=== PATIENT | male | born 1965 | race Caucasian/White ===

== ENCOUNTER 2018-06-30 15:09 | Observation (INO) ==
[2018-06-30] MEDS ORDERED: HYDROmorphone PF Inj 2 MG/ML Vial IV.PUSH ONE (16:01)
--- NOTE | 2018-06-30 16:16 | ED ---
HPI General Chief Complaint: Abdominal Pain Stated Complaint: abd pain Time Seen by Provider: 06/30/18 15:55 History of Present Illness HPI narrative: Patient presents to the emergency department complaining of abdominal pain that started this morning and has increased in severity of the last 3 hours. Pain is described as being epigastric and left upper quadrant, radiates to his back, 10 out of 10, intermittent, no alleviating or aggravating factors. Similar pain approximately 4 years ago and told that it was secondary to stomach ulcers. Reports subjective fever and chills, but denies chest pain or shortness of breath or dysuria or hematuria or diarrhea. He has no known medical problems and states that he took Nexium 1 hour ago. He denies tobacco use but reports alcohol use and he drank beer on Friday. Related Data Home Medications Medication Instructions Recorded Confirmed No Known Home Medications 06/30/18 06/30/18 Allergies Allergy/AdvReac Type Severity Reaction Status Date / Time No Known Allergies Allergy Verified 06/30/18 15:20 Review of Systems ROS: all other systems reviewed are negative [facility] [place] Medical History Medical History Patient denies medical problems (Acute) Stomach ulcer (Acute) Surgical History Surgical History H/O knee surgery (Acute) Social History Social History Substance History: No History of Abuse Second Hand Smoke Exposure: No Smoking Status: Never smoker How Often Do You Have a Drink Containing Alcohol: Never Recent Travel in [facility] within the Last 8 Weeks: No Recent Out of Country Travel within the Last 8 Weeks: No Immunization History Tetanus Immunization: <5 Years Exam Narrative Exam Narrative: GENERAL: Positive discomfort secondary to pain SKIN: Focused skin assessment warm/dry. HEAD: Atraumatic. Normocephalic. EYES: Pupils equal and round. No scleral icterus. No injection or drainage. ENT: No nasal bleeding or discharge. Mucous membranes pink and moist. NECK: Trachea midline. No JVD. CARDIOVASCULAR: Regular rate and rhythm. No murmur appreciated. RESPIRATORY: No accessory muscle use. Clear to auscultation. Breath sounds equal bilaterally. GASTROINTESTINAL: Abdomen soft, epigastric and left upper quadrant tender to palpation, nondistended. Hepatic and splenic margins not palpable. MUSCULOSKELETAL: No obvious deformities. No clubbing. No cyanosis. No edema. NEUROLOGICAL: Awake and alert. No obvious cranial nerve deficits. Motor grossly within normal limits. Normal speech. PSYCHIATRIC: Appropriate mood and affect; insight and judgment normal. Course Initial Documented Vital Signs Temperature 98.2 F 06/30/18 15:15 Pulse Rate 60 06/30/18 15:15 Respiratory Rate 24 06/30/18 15:15 Blood Pressure 221/105 H 06/30/18 15:15 Pulse Oximetry 98 06/30/18 15:15 Last Documented Vital Signs Temperature 98.2 F 06/30/18 15:15 Pulse Rate 63 06/30/18 18:17 Respiratory Rate 18 06/30/18 18:17 Blood Pressure 193/92 H 06/30/18 18:17 Pulse Oximetry 98 06/30/18 18:17 Medical Decision Making MDM Narrative Medical decision making narrative: Presents to the emergency department complaining of abdominal pain. 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 ECG, labs, CT abdomen and pelvis, and 1 mg IV Dilaudid ordered. 1656: Patient states pain is returning, order 2 mg IV morphine. 1819: CT + diverticulitis. Patient still c/o pain despite IV dilaudid and IV morphine. 500mg IV flagyl and 400mg IV cipro and another 2mg IV morphine ordered. Medical Screen Exam Complete: Yes Emergency Medical Condition: Yes Lab Data Result diagrams: 06/30/18 16:10 06/30/18 16:10 Lab Results 06/30/18 06/30/18 06/30/18 Range/Units 16:10 16:10 16:10 WBC 9.5 (4.0-11.0) th/mm3 RBC 5.28 (4.50-5.90) mil/mm3 Hgb 16.7 (13.0-17.0) gm/dL Hct 46.9 (39.0-51.0) % MCV 88.8 (80.0-100.0) fL MCH 31.7 (27.0-34.0) pg MCHC 35.7 (32.0-36.0) % RDW 13.4 (11.6-17.2) % Plt Count 209 (150-450) th/mm3 MPV 8.4 (7.0-11.0) fL Prelim Diff (Auto) Slide review pending Neut % (Auto) 84.8 H (16.0-70.0) % Lymph % (Auto) 10.4 (9.0-44.0) % Swisher % (Auto) 4.5 (0.0-8.0) % Eos % (Auto) 0.1 (0.0-4.0) % Baso % (Auto) 0.2 (0.0-2.0) % Neut # (Auto) 8.0 H (1.8-7.7) th/mm3 Lymph # (Auto) 1.0 (1.0-4.8) th/mm3 Swisher # (Auto) 0.4 (0.0-0.9) th/mm3 Eos # (Auto) 0.0 (0.0-0.4) th/mm3 Baso # (Auto) 0.0 (0.0-0.2) th/mm3 WBC Differential . Diff Scan Auto diff confirmed Differential Comment . Platelet Estimate Normal (Normal) Platelet Morphology Normal (Normal) RBC Morphology Normal (Normal) Sodium 137 (136-145) meq/L Potassium 4.1 (3.5-5.1) meq/L Chloride 100 (98-107) meq/L Carbon Dioxide 28.6 (21.0-32.0) meq/L Anion Gap 8 (5-15) meq/L BUN 17 (7-18) mg/dL Creatinine 0.86 (0.60-1.30) mg/dL Estimated GFR Greater than 89 (>89) mL/min Random Glucose 109 H (74-106) mg/dL Calcium 9.1 (8.5-10.1) mg/dL Magnesium 1.9 (1.5-2.5) mg/dL Total Bilirubin 0.6 (0.2-1.0) mg/dL AST 23 (15-37) U/L ALT 30 (12-78) U/L Alkaline Phosphatase 92 (45-117) U/L Troponin I Less than 0.02 L (0.02-0.05) ng/mL Total Protein 8.1 (6.4-8.2) g/dL Albumin 3.8 (3.4-5.0) g/dL Lipase 73 (73-393) U/L Urine Color Yellow (Yellw/Straw) Urine Clarity Hazy H (Clear) Urine pH 5.0 (5.0-8.5) Ur Specific [place] 1.029 (1.002-1.035) Urine Protein 30 H (Neg-Trace) mg/dL Urine Glucose (UA) Negative (Negative) mg/dL Urine Ketones Trace H (Negative) mg/dL Urine Occult Blood Negative (Negative) Urine Nitrate Negative (Negative) Urine Bilirubin Negative (Negative) Urine Urobilinogen Less than 2 (Less than 2) mg/dL Ur Leukocyte Esterase Negative (Negative) Urine RBC 1 (0-3) /hpf Urine WBC Less than 1 (0-5) /hpf Urine Mucus Few H (Occasional) /lpf Micro UA Comment Culture not ind Ur Microscopic Review Not Reportable Urine Culture Comments Culture not ind Imaging Data Radiologist's impression: Abdomen/Pelvis CT 06/30/18 16:01 CONCLUSION: 1. Diverticulitis in the sigmoid colon (image 70-75) without abscess or free air. ECG Data Attestation: I personally reviewed and interpreted this ECG as follows: (Sinus bradycardia, rate 52, normal axis, T wave inversion in leads III and V1, LVH, normal intervals, QTC 423) Discharge Plan Discharge Disposition Patient Disposition: 30 Still Patient Discharge Condition Condition: Stable Discharge Details Diagnosis: Diverticulitis Physicians Team ED Provider: Xenia Jade Primary Care Provider: Primary Care Tawanna Kat Rxs /Orders / Referrals /Forms Prescriptions: No Action No Known Home Medications RF: 0 Discharge Interventions Interventions: Vital Signs Last Done: 06/30/18 18:17 Status ED Status: With Doctor
[2018-06-30 16:33] LABS: Baso % (Auto) 0.2 % (0.0-2.0); Eos % (Auto) 0.1 % (0.0-4.0); Hematocrit 46.9 % (39.0-51.0); Hemoglobin 16.7 gm/dL (13.0-17.0); Lymph % (Auto) 10.4 % (9.0-44.0); Mean Corpuscular HGB Conc 35.7 % (32.0-36.0); Mean Corpuscular Hemoglobin 31.7 pg (27.0-34.0); Mean Corpuscular Volume 88.8 fL (80.0-100.0); Mean Platelet Volume 8.4 fL (7.0-11.0); Mono # (Auto) 0.4 th/mm3 (0.0-0.9); Mono % (Auto) 4.5 % (0.0-8.0); Neut % (Auto) 84.8 % (16.0-70.0); Platelet Count 209 th/mm3 (150-450); Red Blood Count 5.28 mil/mm3 (4.50-5.90); Red Cell Distribution Width 13.4 % (11.6-17.2); White Blood Count 9.5 th/mm3 (4.0-11.0)
[2018-06-30 16:40] LABS: Bilirubin,Urine Negative (Negative); Clarity,Urine Hazy (Clear); Color,Urine Yellow (Yellw/Straw); Glucose,Urine (UA) Negative (Negative); Leukocyte Esterase,Urine Negative (Negative); Mucus,Urine Few /lpf (Occasional); Nitrite,Urine Negative (Negative); Specific Gravity,Urine 1.029 (1.002-1.035)
[2018-06-30 16:49] LABS: Albumin 3.8 g/dL (3.4-5.0); Anion Gap 8 meq/L (5-15); Aspartate Aminotransferase 23 U/L (15-37); Blood Urea Nitrogen 17 mg/dL (7-18); Calcium 9.1 mg/dL (8.5-10.1); Carbon Dioxide 28.6 meq/L (21.0-32.0); Chloride 100 meq/L (98-107); Glomerular Filtration Rate Greater Than 89 mL/min (>89); Glucose,Random 109 mg/dL (74-106); Lipase 73 U/L (73-393); Magnesium 1.9 mg/dL (1.5-2.5); Potassium 4.1 meq/L (3.5-5.1); Sodium 137 meq/L (136-145)
[2018-06-30 16:50] LABS: Alanine Aminotransferase 30 U/L (12-78)
[2018-06-30 16:54] LABS: Alkaline Phosphatase 92 U/L (45-117); Total Protein 8.1 g/dL (6.4-8.2)
[2018-06-30] MEDS ORDERED: Morphine Sulfate Inj 2 MG/ML Vial IV.PUSH ONE ×2 (16:57→18:19)
[2018-06-30 17:23] LABS: Platelet Estimate Normal (Normal); Platelet Morphology Normal (Normal); RBC Morphology Normal (Normal)
--- NOTE | 2018-06-30 17:53 | CT ---
EXAM DATE: 06/30/2018 5:49 PM EDT AGE/SEX: 52 years / Male INDICATIONS: Abdominal pain and vomiting. CLINICAL DATA: This is the patient's initial encounter. Patient reports that signs and symptoms have been present for 1 day and indicates a pain score of 9/10. MEDICAL/SURGICAL HISTORY: . Stomach ulcer. None. ORAL CONTRAST: No oral contrast ingested. RADIATION DOSE: 21.30 CTDI (mGy) COMPARISON: No prior exams available for comparison. TECHNIQUE: Multiple contiguous axial images were obtained through the abdomen and pelvis following b olus infusion of 96 ml Omnipaque 350 (iohexol) nonionic water-soluble contrast as a single exam dos e. No oral contrast ingested. Using automated exposure control and adjustment of the mA and/or kV ac cording to patient size, radiation dose was kept as low as reasonably achievable to obtain optimal di agnostic quality images. DICOM format image data is available electronically for review and comparis on. FINDINGS: Lower Lungs: The visualized lower lungs are clear. Liver: The liver has a homogeneous density without space-occupying lesion. There is no dilation of th e biliary tree. Spleen: Homogeneous density without enlargement. Pancreas: Unremarkable without mass or calcification. Kidneys: Normal in size and shape. No evidence of mass or hydronephrosis. Adrenal Glands: Unremarkable. Aorta: The aorta and proximal iliac vessels are grossly unremarkable without aneurysmal dilation. Bowel/Mesentery: There is some low-grade inflammation around the sigmoid colon in the central glenoi d small diverticula consistent with diverticulitis. No free air or free fluid or drainable abscess is identified Abdominal Wall: Intact. Retroperitoneum: No evidence of adenopathy in the retrocrural, para-aortic, or deep pelvic regions. Bladder: Contours are smooth. Reproductive Organs: No abnormal masses or calcifications seen. Inguinal: The inguinal region is unremarkable without evidence of adenopathy. Bony Structures: Unremarkable. CONCLUSION: 1. Diverticulitis in the sigmoid colon (image 70-75) without abscess or free air. Electronically signed by: Mulugeta Grider MD 06/30/2018 5:52 PM EDT
[2018-06-30] MEDS ORDERED: Ciprofloxacin 400 MG/200 ML 400 MG/200 ML PIGGYBACK IV.SIG ONE (18:19)
[2018-06-30] MEDS ORDERED: Morphine Sulfate Inj 2 MG/ML Vial IV.PUSH PRN (18:55)
--- NOTE | 2018-06-30 19:05 | P.HPIM ---
History of Present Illness Primary Care Physician: No Primary Care Physician History of Present Illness: This patient is a 52-year-old male with no known past medical history. The patient presents to our emergency department with complaints of abdominal pain that started this past . As per the patient and his he has a significant history of eating red meat. He had some abdominal pain this past Friday which was relieved after a bowel movement. He said on Friday he again started to have diffuse abdominal pain that was worse in the left upper and left lower quadrant. He denies any bloody bowel movements. He also has been having subjective fevers and chills. His symptoms progressively got worse and today came into the emergency department for evaluation. The patient denies any chest pain, no diarrhea breath, no constipation. Past medical history patient has no known medical history Surgical history patient had a left ACL repair approximately 20 years ago. Family history noncontributory Social history the patient drinks alcohol socially, no history of tobacco use or drug use. Review of Systems All other systems reviewed negative except as stated in HPI [facility] - History History Provided By: Patient - Medical History Medical History: Medical History (Last Updated 06/30/18 @ 15:42 by Cassia Bailey) Patient denies medical problems Stomach ulcer - Surgical History Surgical History: Surgical History (Last Updated 06/30/18 @ 15:20 by Ramona Arriola) H/O knee surgery - Tobacco History Second Hand Smoke Exposure: No Smoking Status: Never smoker - Alcohol History How Often Do You Have a Drink Containing Alcohol: Never - Substance Use History Substance History: No History of Abuse - Travel History Recent Travel in the [place] Within the Last 8 Weeks: No Recent Travel Out of the Country Within the Last 8 Weeks: No - Immunization History Tetanus Immunization: <5 Years Medications and Allergies Active Medications: Active Medications Hydrocodone Bitart/Acetaminophen ([place] 5/325) 1 tab PO Q4H PRN PRN Reason: ABDOMINAL PAIN Amlodipine Besylate (Norvasc) 10 mg PO DAILY [facility] Ciprofloxacin/Dextrose (Cipro 400 Mg/200 Ml Inj) 400 mg in 200 mls @ 200 mls/ hr IV.SIG ONCE ONE Stop: 06/30/18 19:18 Last Admin: 06/30/18 18:56 Dose: 200 mls/hr Metronidazole/Sodium Chloride (Flagyl 500 Mg Inj) 100 mls @ 100 mls/hr IV.SIG Q8HR ONE Stop: 07/01/18 06:59 Ciprofloxacin/Dextrose (Cipro 400 Mg/200 Ml Inj) 400 mg in 200 mls @ 200 mls/ hr IV.SIG Q12H [facility] Sodium Chloride (Ns Inj) 1,000 mls @ 100 mls/hr IV.CONT .Q10H [facility] Morphine Sulfate (Morphine Inj) 2 mg IV.PUSH Q3H PRN PRN Reason: ABDOMINAL PAIN Ondansetron HCl (Zofran Inj) 4 mg IV.PUSH Q6H PRN PRN Reason: NAUSEA OR VOMITING Allergies Allergy/AdvReac Type Severity Reaction Status Date / Time No Known Allergies Allergy Verified 06/30/18 15:20 Home Medications Medication Instructions Recorded Confirmed Type No Known Home Medications 06/30/18 06/30/18 History Exam Vital signs: Vital Signs 06/30/18 15:15 06/30/18 18:17 Temperature 98.2 F Pulse Rate 60 63 Respiratory Rate 24 18 Blood Pressure 221/105 H 193/92 H Pulse Oximetry 98 98 Intake & Output 06/29/18 06/30/18 06/30/18 18:59 06:59 18:59 Weight 116.12 kg Narrative: General patient complains of abdominal pain HEENT extraocular movements are intact, clear oropharyngeal mucosa, no JVD Cardiovascular S1-S2 audible, RRR, no murmurs rubs or gallops Respiratory clear to auscultation bilaterally Abdomen soft, epigastric pain. No significant pain on palpation. Normal bowel sounds. Extremities no edema 2+ distal pulses in bilateral upper and lower extremities Neuro cranial nerves II through XII intact Results - Labs CBC & Chem 7: 06/30/18 16:10 06/30/18 16:10 Labs: Short CBC 06/30/18 Range/Units 16:10 WBC 9.5 (4.0-11.0) th/mm3 Hgb 16.7 (13.0-17.0) gm/dL Hct 46.9 (39.0-51.0) % Plt Count 209 (150-450) th/mm3 BMP 06/30/18 16:10 Sodium 137 Potassium 4.1 Chloride 100 Carbon Dioxide 28.6 BUN 17 Creatinine 0.86 Calcium 9.1 Cardiac Enzymes 06/30/18 Range/Units 16:10 Troponin I Less than 0.02 L (0.02-0.05) ng/mL Liver Function 06/30/18 Range/Units 16:10 Total Bilirubin 0.6 (0.2-1.0) mg/dL AST 23 (15-37) U/L ALT 30 (12-78) U/L Alkaline Phosphatase 92 (45-117) U/L Albumin 3.8 (3.4-5.0) g/dL Urine 06/30/18 Range/Units 16:10 Urine Color Yellow (Yellw/Straw) Urine Clarity Hazy H (Clear) Urine pH 5.0 (5.0-8.5) Ur Specific [place] 1.029 (1.002-1.035) Urine Protein 30 H (Neg-Trace) mg/dL Urine Glucose (UA) Negative (Negative) mg/dL - Imaging Impressions Abdomen/Pelvis CT 06/30/18 16:01 CONCLUSION: 1. Diverticulitis in the sigmoid colon (image 70-75) without abscess or free air. Caprini VTE Risk Assessment Caprini VTE Risk Assessment: No/Low Risk (score <= 1) Caprini Risk Assessment Model: Point Value = 1 Point Value = 2 Point Value = 3 Point Value = 5 Age 41-60 Minor surgery BMI > 25 kg/m2 Swollen legs Varicose veins or History of unexplained or recurrent spontaneous Oral contraceptives or hormone replacement Sepsis (< 1 month) Serious lung disease, including pneumonia (< 1 month) Abnormal pulmonary function Acute myocardial infarction Congestive heart failure (< 1 month) History of inflammatory bowel disease Medical patient at bed rest Age 61-74 Arthroscopic surgery Major open surgery (> 45 min) Laparoscopic surgery (> 45 min) Malignancy Confined to bed (> 72 hours) Immobilizing plaster cast Central venous access Age >= 75 History of VTE Family history of VTE Factor V Leiden Prothrombin [id number] Lupus anticoagulant Anticardiolipin antibodies Elevated serum homocysteine Heparin-induced thrombocytopenia Other congenital or acquired thrombophilia Stroke (< 1 month) Elective arthroplasty Hip, pelvis, or leg fracture Acute spinal cord injury (< 1 month) Prophylaxis Regimen: Total Risk Factor Score Risk Level Prophylaxis Regimen 0-1 Low Early ambulation 2 Moderate Order ONE of the following: *Sequential Compression Device (SCD) *Heparin 5000 units SQ BID 3-4 Higher Order ONE of the following medications: *Heparin 5000 units SQ TID *Enoxaparin/Lovenox 40 mg SQ daily (WT < 150 kg, CrCl > 30 mL/min) *Enoxaparin/Lovenox 30 mg SQ daily (WT < 150 kg, CrCl > 10-29 mL/min) *Enoxaparin/Lovenox 30 mg SQ BID (WT < 150 kg, CrCl > 30 mL/min) AND/OR *Sequential Compression Device (SCD) 5 or more Highest Order ONE of the following medications: *Heparin 5000 units SQ TID (Preferred with Epidurals) *Enoxaparin/Lovenox 40 mg SQ daily (WT < 150 kg, CrCl > 30 mL/min) *Enoxaparin/Lovenox 30 mg SQ daily (WT < 150 kg, CrCl > 10-29 mL/min) *Enoxaparin/Lovenox 30 mg SQ BID (WT < 150 kg, CrCl > 30 mL/min) AND *Sequential Compression Device (SCD) Assessment and Plan - Plan This patient is a 52-year-old male with no known past medical history. The patient presents to our emergency department with complaints of abdominal pain that started this past . As per the patient and his he has a significant history of eating red meat. He had some abdominal pain this past Friday which was relieved after a bowel movement. He said on Friday he again started to have diffuse abdominal pain that was worse in the left upper and left lower quadrant. He denies any bloody bowel movements. He also has been having subjective fevers and chills. His symptoms progressively got worse and today came into the emergency department for evaluation. 1. Acute diverticulitis The patient presented with the symptoms mentioned above. He was started on IV pain medication given significant amount of abdominal pain. CT scan of the abdomen pelvis shows diverticulitis. He has been started on IV Flagyl and Cipro. He will be given Zofran as needed for nausea. I will keep the patient n.p.o. for tonight, continue IV fluids. We will reassess the patient tomorrow a.m. diet will likely be restarted tomorrow. Once patient symptoms improved he can be transitioned to p.o. antibiotics will likely be discharged tomorrow. Continue p.o. and IV pain medication as needed. 2. Hypertension The patient has no known diagnosis of hypertension. On my evaluation the patient systolic blood pressure was around 180. He will be started on Norvasc today. Pain is also likely contributing to his elevation in blood pressure. We will continue to monitor the patient blood pressure and adjust his medication if needed. Patient is ambulatory, no pharmacotherapy for DVT prophylaxis.
[2018-06-30] MEDS: amLODIPine 10 MG Tablet PO SCH (20:07)
[2018-06-30] MEDS: Sod Chloride 0.9% Inj 1,000 ML IV.CONT SCH (20:08)
[2018-06-30] MEDS: HYDROmorphone PF Inj 2 MG/ML Vial IV.PUSH PRN (23:03)
[2018-07-01] MEDS: HYDROmorphone PF Inj 2 MG/ML Vial IV.PUSH PRN (05:00)
[2018-07-01] MEDS: Sod Chloride 0.9% Inj 1,000 ML IV.CONT SCH ×3 (05:01→19:21)
[2018-07-01] MEDS: Ciprofloxacin 400 MG/200 ML 400 MG/200 ML PIGGYBACK IV.SIG SCH ×2 (06:26→19:22)
--- NOTE | 2018-07-01 08:46 | P.PN ---
Subjective Interval history: Patient reports abdominal pain diffuse however he also complains of more epigastric pain since he is taking pantoprazole at home for GERD. Restart pantoprazole give one-time IV pantoprazole. Says he was nauseated last night however feels comfortable to try food and no nausea in the morning. Will advance diet. Did not have any bowel movement since yesterday when was bloody. No fever or chills overnight. Feels tired. Will advance diet today and continue IV antibiotics for 24-48 hours we will switch probably to by mouth antibiotics tomorrow can be discharge if able to tolerate food and p.o. antibiotics. Give total of 10 days of antibiotics Physical Exam Vital signs: Vital Signs 06/30/18 15:15 06/30/18 18:17 06/30/18 19:41 Temperature 98.2 F Pulse Rate 60 63 62 Respiratory Rate 24 18 13 Blood Pressure 221/105 H 193/92 H 179/91 H Pulse Oximetry 98 98 96 06/30/18 23:45 07/01/18 00:00 07/01/18 04:59 Temperature 98.3 F Pulse Rate 70 70 Respiratory Rate 20 16 18 Blood Pressure 168/87 H 196/95 H Pulse Oximetry 93 L 98 07/01/18 06:27 07/01/18 07:54 Temperature 98.1 F 98.2 F Pulse Rate 83 72 Respiratory Rate 18 12 Blood Pressure 147/76 H 170/92 H Pulse Oximetry 99 93 L Intake & Output 06/30/18 07/01/18 07/01/18 18:59 06:59 18:59 Intake Total 1300 / 1300 200 / 200 Balance 1300 / 1300 200 / 200 Weight 116.12 kg Intake: IV 1300 / 1300 200 / 200 NS Inj 1,000 ML @ 100 mls/hr IV 900 / 900 .CONT .Q10H [facility] Rx#:[id number] Cipro 400 MG/200 ML Inj 400 mg 200 / 200 200 / 200 In 200 ml @ 200 mls/hr IV.SIG Q12H [facility] Rx#:[id number] Flagyl 500 MG Inj 100 ML @ 100 200 / 200 mls/hr IV.SIG Q8HR [facility] Rx#: [id number] Other: # Voids 1 Narrative: General patient is a very pleasant 52-year-old male, appears in some distress due to abdominal pain, he is well-nourished well-developed. Cardiovascular S1-S2 audible, RRR, no murmurs rubs or gallops Respiratory clear to auscultation bilaterally. No wheezing. Abdomen soft, epigastric pain. No significant pain on palpation. Normal bowel sounds. Extremities no edema 2+ distal pulses in bilateral upper and lower extremities Neuro cranial nerves II through XII grossly normal. Strength grossly normal. Results - Labs CBC & Chem 7: 06/30/18 16:10 06/30/18 16:10 Laboratory Results - last 24 hr 06/30/18 06/30/18 06/30/18 16:10 16:10 16:10 WBC 9.5 RBC 5.28 Hgb 16.7 Hct 46.9 MCV 88.8 MCH 31.7 MCHC 35.7 RDW 13.4 Plt Count 209 MPV 8.4 Prelim Diff (Auto) Slide review pending Neut % (Auto) 84.8 H Lymph % (Auto) 10.4 Desha % (Auto) 4.5 Eos % (Auto) 0.1 Baso % (Auto) 0.2 Neut # (Auto) 8.0 H Lymph # (Auto) 1.0 Desha # (Auto) 0.4 Eos # (Auto) 0.0 Baso # (Auto) 0.0 WBC Differential . Diff Scan Auto diff confirmed Differential Comment . Platelet Estimate Normal Platelet Morphology Normal RBC Morphology Normal Sodium 137 Potassium 4.1 Chloride 100 Carbon Dioxide 28.6 Anion Gap 8 BUN 17 Creatinine 0.86 Estimated GFR Greater than 89 Random Glucose 109 H Calcium 9.1 Magnesium 1.9 Total Bilirubin 0.6 AST 23 ALT 30 Alkaline Phosphatase 92 Troponin I Less than 0.02 L Total Protein 8.1 Albumin 3.8 Lipase 73 Urine Color Yellow Urine Clarity Hazy H Urine pH 5.0 Ur Specific [place] 1.029 Urine Protein 30 H Urine Glucose (UA) Negative Urine Ketones Trace H Urine Occult Blood Negative Urine Nitrate Negative Urine Bilirubin Negative Urine Urobilinogen Less than 2 Ur Leukocyte Esterase Negative Urine RBC 1 Urine WBC Less than 1 Urine Mucus Few H Micro UA Comment Culture not ind Ur Microscopic Review Not Reportable Urine Culture Comments Culture not ind - Imaging Impressions Abdomen/Pelvis CT 06/30/18 16:01 CONCLUSION: 1. Diverticulitis in the sigmoid colon (image 70-75) without abscess or free air. Assessment and Plan - Plan This patient is a 52-year-old male with no known past medical history. The patient presents to our emergency department with complaints of abdominal pain that started this past . As per the patient and his he has a significant history of eating red meat. He had some abdominal pain this past Friday which was relieved after a bowel movement. He said on Friday he again started to have diffuse abdominal pain that was worse in the left upper and left lower quadrant. He denies any bloody bowel movements. He also has been having subjective fevers and chills. His symptoms progressively got worse and today came into the emergency department for evaluation. 1. Acute diverticulitis The patient presented with the symptoms mentioned above. He was started on IV pain medication given significant amount of abdominal pain. CT scan of the abdomen pelvis shows diverticulitis. He has been started on IV Flagyl and Cipro. He will be given Zofran as needed for nausea. Continue IV fluids. Will advance diet today and continue IV antibiotics for 24-48 hours we will switch probably to by mouth antibiotics tomorrow can be discharge if able to tolerate food and p.o. antibiotics. Give total of 10 days of antibiotics Once patient symptoms improved he can be transitioned to p.o. antibiotics will likely be discharged tomorrow. Continue p.o. and IV pain medication as needed. 2. Hypertension The patient has no known diagnosis of hypertension. On my evaluation the patient systolic blood pressure was around 180. He will be started on Norvasc today. Pain is also likely contributing to his elevation in blood pressure. We will continue to monitor the patient blood pressure and adjust his medication if needed. Patient is ambulatory, no pharmacotherapy for DVT prophylaxis. Likely DC tomorrow. Discharge Plannin-2 days of IV abx then DC home on PO antibiotic
[2018-07-01] MEDS: amLODIPine 10 MG Tablet PO SCH (08:54)
[2018-07-01] MEDS ORDERED: Pantoprazole Inj 40 MG Vial IV.PUSH ONE (12:45)
--- NOTE | 2018-07-01 13:39 | ECG ---
Date Performed: 06/30/2018 Time Performed: 17:23:34 PTAGE: 52 years EKG: SINUS BRADYCARDIA MODERATE VOLTAGE CRITERIA FOR LVH, CONSIDER NORMAL VARIANT BORDERLINE ECG PREVIOUS TRACING : 07/29/2013 22.18 DOCTOR: Mulugeta Mathews Interpretating Date/Time 07/01/2018 13:36:37
[2018-07-02] MEDS: Ciprofloxacin 400 MG/200 ML 400 MG/200 ML PIGGYBACK IV.SIG SCH (06:27)
[2018-07-02] MEDS: Sod Chloride 0.9% Inj 1,000 ML IV.CONT SCH ×2 (07:14→10:22)
[2018-07-02] MEDS: amLODIPine 10 MG Tablet PO SCH (09:57)
--- NOTE | 2018-07-02 11:27 | P.DS ---
Date of admission: 06/30/18 18:38 Primary care physician: No Primary Care Physician Brief History from admission: This patient is a 52-year-old male with no known past medical history. The patient presents to our emergency department with complaints of abdominal pain that started this past weekend. As per the patient and his he has a significant history of eating red meat. He had some abdominal pain this past Friday which was relieved after a bowel movement. He said on Friday he again started to have diffuse abdominal pain that was worse in the left upper and left lower quadrant. He denies any bloody bowel movements. He also has been having subjective fevers and chills. His symptoms progressively got worse and today came into the emergency department for evaluation. The patient denies any chest pain, no diarrhea breath, no constipation. Past medical history patient has no known medical history Surgical history patient had a left ACL repair approximately 20 years ago. Family history noncontributory Social history the patient drinks alcohol socially, no history of tobacco use or drug use. DS: Medications - Discharge Medications Prescriptions: ciprofloxacin HCl [Cipro] 500 mg PO BID #14 tab docusate sodium [Colace] 100 mg PO BID PRN #10 cap PRN Reason: Constipation hydrocodone-acetaminophen 1 tab PO Q4H PRN #20 tab PRN Reason: Abdominal Pain Lactobacillus acidophilus 500 mmu cells PO TID #30 cap metronidazole [Flagyl] 500 mg PO TID #21 tab DS: Summary Hospital Course: Mr. Alejo is a 52-year-old male. He was admitted secondary to acute diverticulitis. He cannot recall any specific prior history of acute diverticulitis though he has had previous abdominal pain symptoms similar and at that time he had been diagnosed with gastric ulcers via imaging and treated with a PPI. Her imaging revealed diverticulosis suggestive of bacterial diverticulosis with included labs. Patient has been treated with ciprofloxacin and Flagyl and he has improvement in symptoms. At this point pain is controlled , he is tolerating solid p.o. intake. Medically stable and cleared for discharge home today on oral antibiotics. He will be discharged on oral antibiotics, pain treatments, probiotics, and a stool softener. - Time Spent with Patient Total time spent providing and/or coordinating discharge services: Less than 30 minutes - Quality: VTE Deep Vein Thrombosis/Pulmonary Embolism Present on Admission: No Exam Vital signs: Vital Signs 07/01/18 14:44 07/01/18 20:00 07/01/18 23:30 Temperature 98.3 F 100.1 F H 99.4 F Pulse Rate 75 81 85 Respiratory Rate 16 16 14 Blood Pressure 160/83 H 169/83 H 161/84 H Pulse Oximetry 94 L 94 L 95 07/02/18 04:00 07/02/18 07:37 Temperature 99.9 F H 99.1 F Pulse Rate 84 90 Respiratory Rate 17 18 Blood Pressure 161/81 H 150/87 H Pulse Oximetry 95 96 Intake & Output 07/01/18 07/02/18 07/02/18 18:59 06:59 18:59 Intake Total 900 / 900 1280 / 1280 1300 / 1300 Balance 900 / 900 1280 / 1280 1300 / 1300 Weight 116.12 kg Intake: IV 900 / 900 800 / 800 1300 / 1300 NS Inj 1,000 ML @ 100 mls/hr IV 500 / 500 500 / 500 1000 / 1000 .CONT .Q10H [facility] Rx#:[id number] Cipro 400 MG/200 ML Inj 400 mg 200 / 200 200 / 200 200 / 200 In 200 ml @ 200 mls/hr IV.SIG Q12H [facility] Rx#:[id number] Flagyl 500 MG Inj 100 ML @ 100 200 / 200 100 / 100 100 / 100 mls/hr IV.SIG Q8HR [facility] Rx#: [id number] Oral 480 / 480 Other: # Voids 1 3 Date of Last Bowel Movement 06/28/18 06/28/18 06/28/18 # Bowel Movements 1 Narrative: GENERAL: NAD, A&Ox3 HEAD: Normocephalic. NECK: Supple, trachea midline. No lymphadenopathy. EYES: No scleral icterus. No injection or drainage. CARDIOVASCULAR: Regular rate and rhythm without murmurs, gallops, or rubs. RESPIRATORY: Breath sounds equal bilaterally. No accessory muscle use. GASTROINTESTINAL: Abdomen soft, non-tender, nondistended. MUSCULOSKELETAL: No cyanosis, or edema. SKIN: Warm and dry. NEURO: No focal neurological deficits. Results Procedures completed during hospitalization: None - Impressions ITS Impressions Abdomen/Pelvis CT 06/30/18 16:01 CONCLUSION: 1. Diverticulitis in the sigmoid colon (image [id number]) without abscess or free air. Discharge Plan - Discharge Disposition Patient Disposition: Discharge Home - Discharge Condition Condition: Stable - Discharge Order Discharge Orders: Discharge Order (Routine); Ordered 07/02/18 Ordered By: Jona Crowder - Discharge Details Anticipated Discharge Date: 07/02/18 - Physicians Team Primary Care Provider: Primary Care Tawanna Kat Attending Provider: Jona Crowder
== END 2018-07-02 10:39 | disposition home or self-care (01) ==
LOC: NEDA 15:09 → NEPC 15:09 → NEDA 21:36 → NEPFCDU 21:38
PROVIDERS: ADMIT Hospitalist; ATTEND Hospitalist